=== PATIENT | male | born 1960 | race Caucasian/White ===

== ENCOUNTER 2017-03-27 11:39 | Inpatient (IN) | payer BC ==
[~2017-03-27] VITALS: Ht 177.8 cm; Wt 115.7 kg
[~2017-03-27 11:39] MED LIST: ALLOPURINOL300 MG PO; BENICAR HCT 401 EAC1 PO; CILOXAN5 ML OD; CILOXAN5 ML OS; FENOFIBRATE160 MG PO; FUROSEMIDE40 MG PO; LEVOTHYROXINE50 MCG PO; LIALDA1.2 GM PO; OXYCODONE HCL5 MG PO; POTASSIUM CHLO20 ME1 PO; ZOLPIDEM TART12.5 MG PO
--- NOTE | 2017-03-27 16:04 | NUR ---
PT TO FLOOR WITH RATE EXAMINER. PT ABLE TO TRANSFER TO BED HIMSELF. RATES PAIN 310. VS TAKEN, BP HIGH.
[2017-03-27] MEDS ORDERED: METOPROLOL SUCC25 MG PO (17:01)
--- NOTE | 2017-03-27 17:18 | NUR ---
PT TO FLOOR AT 1600. NPO. RATES PAIN 3\10. INDEPENDENT IN ROOM. GIVEN ZOFRAN, PHEN, AND DILAUDID IN ED.
--- NOTE | 2017-03-27 18:13 | NUR ---
PT SLEEPING, APPEARS COMFORTABLE.
--- NOTE | 2017-03-27 20:15 | NUR ---
PT APPEARS TO BE SLEEPING. LAYING IN BED, EYES CLOSED, RR WNL AND UNLABORED. TV AND LIGHTS OUT IN ROOM. IV WNL AND INFUSING WELL.
--- NOTE | 2017-03-27 20:38 | NUR ---
PT WOKE EASILY TO VOICE. DENIES PAIN AND NAUSEA AT THIS TIME. IV INFUSING WNL. PT ALERT AND ORIENTED X4, PLEASENT AND FRIENDLY DEMEANOR. NO NEEDS AT THIS TIME. CALL LIGHT IN REACH.
--- NOTE | 2017-03-28 00:48 | NUR ---
pt continues to complain of 7/10 pain, gave dilaudid for pain. pt in bed, laying down. no apparent distress, alert and oriented, pleasent demeanor. call light in reach.
--- NOTE | 2017-03-28 04:25 | NUR ---
PT APPEARS TO BE SLEEPING AT THIS TIME. LIGHTS AND TV OFF IN ROOM.
--- NOTE | 2017-03-28 06:01 | NUR ---
PT HAD UNEVENTFUL NIGHT. SLEPT MAJORITY OF SHIFT. DILAUDID GIVEN FOR PAIN X1 OVERNIGHT. NO NAUSEA. NPO. IV FLUIDS. STANDBY ASSIST. ALERT AND ORIENTED X4, PLEASENT DEMEANOR. USES CALL LIGHT APPROPRIATLY.
--- NOTE | 2017-03-28 06:28 | NUR ---
PT RATES PAIN AT 7/10, GAVE DILAUDID IV FOR PAIN.
--- NOTE | 2017-03-28 07:26 | NUR ---
RECIEVED BEDSIDE REPORT FROM LARS BASS. PT SLEEPING IN BED, BREATHING EVEN AND UNLABORED.
--- NOTE | 2017-03-28 08:52 | NUR ---
HUNG NEW BAG OF FLUID. SL PT FOR SHOWER. MANUFACTURING SPECIALIST ASSISTING.
--- NOTE | 2017-03-28 09:13 | NUR ---
PT RESTING IN BED WITH EYES CLOSED. PT REPORTS NO PAIN, NO NAUSEA. IV RUNNING. SITE DRESSING C/D/I.
--- NOTE | 2017-03-28 10:18 | NUR ---
PT STATED PAIN WAS "CREEPING UP AGAIN" RATED 4/10. ONE PRN OXY GIVEN.
--- NOTE | 2017-03-28 10:33 | NUR ---
SPOKE WITH DR. DENNISON REGARDING PT BP INCREASING. PT WAS GIVEN PRN PAIN MEDS. DR. DENNISON WILL VISIT PT.
--- NOTE | 2017-03-28 11:12 | NUR ---
DR ORDERED ANOTHER BP MED FOR CONTINUING ELEVATED BP. ADMINSTERED WITH SIP OF WATER. PT TOLERATED WELL AND STATED THE OXY HAD KICKED IN AND WAS FEELING DECENT.
--- NOTE | 2017-03-28 13:06 | NUR ---
PT C/O PAIN. IV DILAUDID GIVEN. PT RATES PAIN AT 6, PT STATES "THE PAIN CREAPS UP, ITS NOT TOO BAD WHEN I LAY HERE."
--- NOTE | 2017-03-28 14:06 | NUR ---
ORDERED NEW MED, SPIRONOLACTONE. MED GIVEN, VITAL SIGNS TAKEN.
--- NOTE | 2017-03-28 16:07 | NUR ---
PT STATED HE WOULD LIKE PO PAIN PILL, EVEN THOUGH IT TAKES LONGER FOR EFFECT. HE SATED "MY PAIN IS NOT BAD NOW"
--- NOTE | 2017-03-28 16:37 | NUR ---
CALLED PHARMACY TO RETIME THYROID MEDICATION. SCHEDULED FOR 0900, ASKED TO RETIME FOR 0700.
--- NOTE | 2017-03-28 17:08 | NUR ---
PT ADVANCED DIET TO CLEAR LIQUIDS. PT INDEPENDEDNT IN ROOM. PT HAD PRN IV PAIN MEDS X1, PRN PO MEDS X2. PT TOLERATING CLEAR LIQUIDS WELL. PT SPENT DAY RESTING.
--- NOTE | 2017-03-28 21:38 | NUR ---
VITALS TAKEN, TEMPERATURE ELEVATED, INSTRUCTED PT IN USING THE INCENTIVE SPIROMETER. PT DENIES ANY SX OF FEVER. PT AMBULATED IN ROOM AND USED INCENTIVE SPRIOMETER. TEMPERATURE REMAINED ELEVATED, DR NOTIFIED AND TYLENOL GIVEN. PT ALERT AND ORIENTED X4, PLEASENT DEMEANOR. DILAUDID GIVEN FOR PAIN.
--- NOTE | 2017-03-29 02:28 | NUR ---
PT REPORTS 5/10 PAIN, GAVE PO OXYCODONE PER PT REQUEST. PT REPORTS USING INCENTIVE SPIROMETER. PT IS NOW AFEBRILE. NO FURTHER NEEDS. CALL LIGHT IN REACH.
--- NOTE | 2017-03-29 04:23 | NUR ---
PT APPEARS TO BE SLEEPING. RR WNL AND UNLABORED.
--- NOTE | 2017-03-29 06:25 | NUR ---
PT HAD UNEVENTFUL NIGHT. SLEPT MAJORITY OF SHIFT. PAIN WELL CONTROLLED WITH PRN PAIN MEDS. PT ALERT AND ORIENTED X4, PLEASENT DEMEANOR. USES CALL LIGHT APPROPRIATLY.
--- NOTE | 2017-03-29 08:03 | NUR ---
PT UP IN CHAIR WITH CLEAR LIQUID BREAKFAST TRAY. DENIES PAIN AT THIS TIME, C/O FULLNESS AND BLOATING IN ABD.
--- NOTE | 2017-03-29 09:55 | NUR ---
PT SITTING IN CHAIR. REQUESTED PAIN MEDS, PAIN 5/10. IV DILAUDID GIVEN.
--- NOTE | 2017-03-29 11:47 | NUR ---
PT RESTING COMFORTABLY IN BED WITH EYES CLOSED. PT REPORTS DILAUDID WAS EFFECTIVE, PAIN DECREASED 2/10.
--- NOTE | 2017-03-29 12:38 | NUR ---
PATIENT RESTING IN BED REPORTED THAT HIS PAIN IS BETTER AFTER THE DILAUDID. DENIES NAUSEA. NO APPARENT DISTRESS NOTED.
--- NOTE | 2017-03-29 14:01 | NUR ---
PT RESTING IN BED. PT STATED HE HAD NO PAIN, HE WAS WAITING FOR THE DR. HE DECLINED PAIN MEDICATION AT THIS TIME.
--- NOTE | 2017-03-29 14:42 | NUR ---
DR DENNISON WAS NOTIFIED ABOUT PATIENT TEMP 0F 100.9. TYLENOL GIVEN. PATIENT RESTING IN BED.
--- NOTE | 2017-03-29 15:33 | NUR ---
PT SITTING IN CHAIR WITH COOL CLOTHES ON FOREHEAD. PT STATES THAT "HE DOESN'T FEEL FEVERISH OR SICK." PT FEVER REDUCED TO 99.4. OFFERED MORE WATER, PT STATES HE IS FINE.
--- NOTE | 2017-03-29 18:00 | NUR ---
PATIENT SITTING AT BEDSIDE, JUST FINISHED EATING DINNER. TOLERATED IT WELL. DENIES NAUSEA. REPORTED MILD PAIN. IV FLUID INFUSING WELL. NO APPARENT DISTRESS.
--- NOTE | 2017-03-29 18:48 | NUR ---
PT ADVANCED TO LOW FAT DIET. PAIN CONTROLED BY PRN IV AND PO PAIN MEDS. PT ANXIOUS TO D/C HOME TOMORROW. INDEPENDENT IN ROOM. PT VOIDING WELL, PASSING GAS, SMALL BM. LR WITH 20MEQ OF POTTASIUM RUNNING AT 125ML/HR. PT UP TO CHAIR THIS SHIFT.
--- NOTE | 2017-03-29 19:15 | NUR ---
BEDSIDE SHIFT REPORT RECEIVED FROM LARS BARCENAS. PT IS RESTING IN BED, ALERT/ORIENTED, REQUESTS PAIN MEDICATION WHEN IT IS AVAILABLE, STATES HIS PAIN IN ABDOMEN IS STARTING TO INCREASE. RA. IV PATENT, LR +20MEQ K+ @ 125ML/HR. DENIES FURTHER REQUESTS, WILL CONTINUE TO MONITOR.
--- NOTE | 2017-03-29 20:00 | NUR ---
ASSESSMENT COMPLETED. PT IS ALERT/ORIENTED, REPORTS 6/10 ABDOMINAL PAIN, 1MG IV DILAUDID GIVEN. LUNGS CLEAR, RA. HR REGULAR. BOWEL TONES ACTIVE, DENIES NAUSEA, PT REPORTS MILD DISTENTION, ABDOMEN FEELS SOFT, DENIES TENDERNESS. SKIN INTACT, CMS INTACT, NO EDEMA NOTED. IV PATENT, INFUSING WNL. DENIES FURTHER REQUESTS AT THIS TIME. WILL CONTINUE TO MONITOR.
--- NOTE | 2017-03-29 21:00 | NUR ---
PT STATES PAIN HAS IMPROVED AND ONLY RATES IT 1-2. DENIES FURTHER REQUESTS AT THIS TIME.
--- NOTE | 2017-03-30 00:25 | NUR ---
PT SLEEPING, NO APPARENT DISTRESS. RESPIRATIONS EVEN AND UNLABORED. WILL CONTINUE TO MONITOR.
--- NOTE | 2017-03-30 00:56 | NUR ---
PT REQUESTED PAIN MEDICATION FOR 4/10 ABDOMINAL AND HEADACHE PAIN. 1 TAB OXYCODONE GIVEN. PT REPORTED FEELING CHILLED, CHECKED TEMP: 99.0. PROVIDED WARM BLANKET AND TURNED UP ROOM TEMP. WILL CONTINUE TO MONITOR. DENIES FURTHER REQUESTS.
--- NOTE | 2017-03-30 02:40 | NUR ---
ASSESSMENT COMPLETED. PT REPORTS MILD ABDOMINAL PAIN RATING 2/10, STATES THAT IT IS TOLERABLE AT THIS TIME. LUNGS CLEAR, RA. HR REGULAR. BOWEL TONES ACTIVE, ABDOMEN SOFT AND NONTENDER, NO NAUSEA. IV PATENT, INFUSING WNL. PT DENIES FURTHER REQUESTS AT THIS TIME, WILL CONTINUE TO MONITOR.
--- NOTE | 2017-03-30 05:51 | NUR ---
PT SLEPT WELL THROUGHOUT SHIFT, PAIN WELL CONTROLLED WITH PRN OXYCODONE AND DILAUDID, EACH GIVEN ONCE. NO NAUSEA. LUNGS CLEAR, RA. HR REGULAR. BOWEL TONES ACTIVE, ABDOMEN SOFT, PT STATES DISTENTION IS IMPROVING. AFEBRILE, VSS. IV PATENT, LR +20MEQ K+ @125ML/HR. PT HOPES TO D/C HOME TODAY.
--- NOTE | 2017-03-30 07:20 | NUR ---
REPORT RECEIVED FROM [employer] SHEARER RN USING 5 P'S. PT UP MOVING AROUND ROOM. DENIES NAUSEA. DENIES PAIN. DENIES NEEDS AT THIS TIME. CALL LIGHT IN REACH. WOULD LIKE TO DC TODAY. AWARE.
--- NOTE | 2017-03-30 09:00 | NUR ---
PT UP IN CHAIR. FINISHED BREAKFAST. DENIES NAUSEA, PAIN. DENIES NEEDS. IV INFUISNG WITHOUT DIFFICULTY. CALL LIGHT IN REACH.
[2017-03-30] MEDS ORDERED: SPIRONOLACTONE25 MG PO (10:06)
--- NOTE | 2017-03-30 11:22 | NUR ---
PT GIVEN DC INSTRUCTIONS BY RN AND PHARMACY. DENIES ADDITIONAL QUESTIONS. VITALS DONE FOR DC.
--- NOTE | 2017-03-30 11:47 | NUR ---
PT SITTING IN CHAIR WITH HAT ON AND SON BY HIS SIDE WAITING TO BE DC'D. HE SHOOK MY HAND AND WE HAD A PLEASANT CONVERSATION. HE WAS ALERT, AND ORIENTED. HE THANKED ME FOR COMING IN AND SAID HE IS LOOKING FORWARD TO BEING IN HIS OWN BED. GAVE A BLESSING AND HE THANKED ME
--- NOTE | 2017-04-22 10:37 | CONS ---
[facility] [address] [place], [place] [address] Signed DATE OF CONSULTATION: 03/30/17 REQUESTING PHYSICIAN: Dr. An. PROBLEM: Recurrent pancreatitis; alcoholism, in remission. HISTORY This 56-year-old obese white man is known to me from the past, having been treated for ulcerative proctitis. He generally takes Lialda on a daily basis and has been well controlled with it. Initially, Cortenemas were used. The patient was admitted on March 27, 2017, with recurrent pancreatitis and findings of elevated lipase level, greater than 2500. He has been hospitalized in the past for pancreatitis with similar symptoms and elevated pancrea tic enzymes, but in those times, he was drinking alcohol in excess, and it was considered likely alcoholic pancreatitis. The patient has been abstinent of alcohol use for at least 2 months, and his new episode is reconsidered now to approximately be related to biliary source of etiology. Imaging studies of the gallbladder in the past have not shown gallstones. Consideration is now made again for consideration of gallbladder as a source of pancreatitis and for consideration of cholecystectomy on that basis. SOCIAL HISTORY He lives in [place]. He is a patient of Dr. Evan painter. 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 REVIEW OF SYSTEMS Denies any shortness of breath or chest pain. He is not having severe abdominal pain at this time, 48 hours post hospitalization. He had no nausea or vomiting today and is tolerating a clear liquid diet. PHYSICAL EXAMINATION GENERAL: Obese white main who does not look systematically toxic. HEENT: Trachea is midline. He has no hoarseness. CHEST: Clear. HEART: Regular. ABDOMEN: Quite obese but soft. I detect no tenderness at this time. The umbilical area shows proximal mild umbilical herniation. I do not detect ascites. NEUROLOGIC: Pupils equal, round, and reactive to light. Extraocular eye movements normal. No signs of nystagmus. He has no tremor or tremulousness. His gait appears reasonably normal to limited ambulation. 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 Electronically Signed By: KATHRYN CADENA MD 04/22/17 [facility] PATIENT NAME: DONTE CABRERA CONSULTATION DATE OF : 58 PHYSICIAN: KATHRYN CADENA MD REPORT #: [id number] REPORT IS CONFIDENTIAL AND NOT TO BE RELEASED WITHOUT AUTHORIZATION [facility] [address] [place], [place] [address] Signed LABORATORY STUDIES White count today 12.6, adrian tocrit 42.9, platelets 116,000. Chem profile is normal. Bilirubin 1.3, AST 12, ALT 10, alk phos 24, lipase on March 27 was 2656. Today's lab is unavailable due to issues with lab transport. ASSESSMENT He is clinically free of acute pancreatitis, and I do not detect ascites at this time. Imaging studies at the time of admission on March 27, 2017, showed reactive peripancreatic lymph nodes, no evidence of pancreatic pseudocyst or pancreatic ductal dilatation. There is extensive peripancreatic fat stranding. No evidence of pancreatic necrosis. The gallbladder is considered normal. He may have gallbladder-related pancreatitis despite no gallstones known on imaging studies. Particularly, since he has been abstinent of alcohol for reasonably long time and his di agnosis was rightly considered alcohol-related pancreatitis, things may be reconsidered as a possibility of a biliary-related pancreatitis. I discussed this with him in detail. I did consider for him the idea of laparoscopic cholecystectomy performed jose erika ross. The patient is adamant that he be discharged today or tomorrow. I discussed with him the need to avoid alcohol under any circumstance which he is already doing and Dr. An has reviewed his maintenance medications which might be modified to eliminat e those with any chance of causing pancreatitis themselves. I am happy to see him again should he change his mind about the idea of cholecystectomy. I cannot guarantee that it would be cured off to recurrent pancreatitis, and it is unknown if this current e pisode is related to biliary disease after all. On the other hand, I believe he will tolerate cholecystectomy well enough. Gallbladder is the source of his pancreatitis. It may be helpful in eliminating feature about the pancreatitis. He understands all o f this. MD YULI Olson/Farshad /[id number] cc: Dr. Juve Gordon Electronically Signed By: KATHRYN CADENA MD 04/22/17 1037 PATIENT NAME: DONTE CABRERA CONSULTATION DATE OF : 58 PHYSICIAN: KATHRYN CADENA MD REPORT #: [id number] REPORT IS CONFIDENTIAL AND NOT TO BE RELEASED WITHOUT AUTHORIZATION
== END 2017-03-30 11:20 | disposition home or self-care (01) | DRG 439 ==
LOC: ED 11:39 → MS 15:24
PROVIDERS: ADMIT Internal Medicine
DX: K85.90 Acute pancreatitis without necrosis or infection, unspecified (principal); K51.90 Ulcerative colitis, unspecified, without complications; E78.5 Hyperlipidemia, unspecified; E03.9 Hypothyroidism, unspecified; E79.0 Hyperuricemia without signs of inflammatory arthritis and tophaceous disease; I11.0 Hypertensive heart disease with heart failure; I50.9 Heart failure, unspecified; G47.33 Obstructive sleep apnea (adult) (pediatric)
CPT/HCPCS: 36415; 74177; 80053; 81001; 83690; 83735; 84100; 85025; 96361; 96374; 96375; 99285; J1170; J2405; J2550; J3480; J7030; J7120; Q9967

== ENCOUNTER 2020-05-27 13:22 | Day surgery (SDC) | payer BC ==
[~2020-05-27] VITALS: Ht 177.8 cm; Wt 114.8 kg
[~2020-05-27 13:22] MED LIST changes: +CITALOPRAM HBR20 MG PO; +CYCLOBENZAPRINE10 MG PO; +FOLIC ACID1 MG PO; +K-TAB ER20 MEQ PO; +LASIX40 MG PO; +LUNESTA3 MG PO; +MESALAMINE1.2 GM PO; +METOPROLOL SUCC25 MG PO; +NORCO 7.5-3251 EACH PO; +OMEPRAZOLE20 MG PO; +PREDNISONE20 MG PO; +SPIRONOLACTONE25 MG PO; +TIROSINT50 MCG PO; +VENTOLIN HFA18 GM INH
[2020-05-27] MEDS ORDERED: BENICAR HCT 401 EAC1 PO (13:45)
--- NOTE | 2020-05-27 16:30 | NUR ---
05/27/20 1630 Ashanti Esposito 1624- PT ARRIVES TO PACU AWAKE AND ORIENTED. PT REPORTS NO PAIN OR NAUSEA. RESP EVEN AND UNLABORED. OXYGEN SAT HIGH 90'S TO 100% ON 2L VIA NC. 1629- OXYGEN TITRATED OFF.
--- NOTE | 2020-05-31 08:25 | OR ---
[facility] [address] [place], [place] [address] Signed DATE OF OPERATION: 05/27/2020 SURGEON: Kathryn Cadena MD PREOPERATIVE DIAGNOSIS: Persistent flare of ulcerative colitis, well established. POSTOPERATIVE DIAGNOSIS: Persistent ulcerative colitis, sigmoid and rectum. PROCEDURE: Total colonoscopy to cecum with intubation of ileum and multiple biopsies. ANESTHESIA: Intravenous sedation, fentanyl 100 mcg, and Versed 7 mg. INDICATION: A 59-year-old white man, patient Dr. Munsonradha Alarconbo, with known ulcerative colitis. He was initially controlled with steroids, tapering down to Lialda as a treatment method. For the past several months, he has had increasing symptoms including diarrhea, bleeding, and urgency. Retreatment with steroid has a rescue approach as well as continued use of Lialda has been a less than satisfactory and incomplete in its response. It has been over 2 years since his last colonoscopy. He is to undergo colonoscopy at this time to assess the extent of his colitis, ascertained there was no evidence of other source of bleeding (malignancy) and better outline of treatment plan. He understands the risks of bleeding, infection, and perforation, and wished to proceed. FINDINGS: Typical ulcerative colitis was noted extending from the sigmoid through the rectum. The more proximal colon was normal as was the ileum. PROCEDURE IN DETAIL: The patient was brought to the endoscopy suite, placed in lateral decubitus position, and given intravenous sedation to the point of slurred speech and nystagmus. Digital rectal examination was normal. An Olympus video colonoscope was passed in the rectum and manipulated throughout the colon noting inflammatory changes of sigmoid, rectosigmoid, and sigmoid. The scope was passed into the proximal left colon where a transition of normal mucosa was noted. The scope was easily advanced ultimately to the cecum and intubation of the ileum Electronically Signed By: KATHRYN CADENA MD 05/31/20 0825 PATIENT NAME: DONTE CABRERA OPERATIVE REPORT DATE OF : 58 REPORT #: [id number] PHYSICIAN: KATHRYN CADENA MD PCP: CARMEN GORDON MD REPORT IS CONFIDENTIAL AND NOT TO BE RELEASED WITHOUT AUTHORIZATION [facility] [address] [place], [place] [address] Signed accomplished as well. Biopsies were taken of the ileum appeared normal. Scope was withdrawn and biopsies were then taken of the cecum. Withdrawal of scope allowed for biopsies additionally at the splenic flexure area and further withdrawal of scope showed inflammatory changes beginning at about 60 cm from the anal verge. Biopsies were taken there. Additional biopsies were taken in the sigmoid and the rectum. Retroflexed view was undertaken as well. The clinical appearance is completely consistent with acute history of ulcerative colitis and flare. PLAN: He likely will need a biologic agent after all. In the meantime, we will initiate prednisone 40 mg p.o. daily and increase Lialda 2.4 g p.o. daily. We will make plans for possible biologic agent initiation to include obtaining TB test, etc. We will see him back in the office in 2 to 3 weeks. In the meantime, we will make arrangements for other tests as described. MD YULI Olson/BRAYDENL /[id number] cc: Carmen Gordon MD Copies: CARMEN GORDON MD ~ Electronically Signed By: KATHRYN CADENA MD 05/31/20 0825 PATIENT NAME: DONTE CABRERA OPERATIVE REPORT DATE OF : 58 REPORT #: [id number] PHYSICIAN: KATHRYN CADENA MD PCP: CARMEN GORDON MD REPORT IS CONFIDENTIAL AND NOT TO BE RELEASED WITHOUT AUTHORIZATION
--- NOTE | 2020-05-31 17:13 | PATH ---
[facility] [address] [place], [place] [address] Signed SPECIMEN(S): A CECUM SPECIMEN(S): B TERMINAL ILEUM SPECIMEN(S): C SPLENIC FLEXURE SPECIMEN(S): D COLON AT 60 CM SPECIMEN(S): E COLON POLYP AT 45 CM SPECIMEN(S): F SIGMOID SPECIMEN(S): G RECTUM SPECIMEN SOURCE: A. CECUM B. TERMINAL ILEUM C. SPLENIC FLEXURE D. COLON AT 60 CM E. COLON POLYP AT 45 CM F. SIGMOID G. RECTUM CLINICAL HISTORY: Colonoscopy. Chronic ulcerative colitis. Mod. rectosigmoid ulcerative colitis. MICROSCOPIC DESCRIPTION: Histologic sections of all submitted blocks are examined by light microscopy. These findings, together with the gross examination, support the pathologic diagnosis. FINAL PATHOLOGIC DIAGNOSIS: A. Cecum, biopsy: - Quiescent colonic mucosa, negative for dysplasia. B. Terminal ileum, biopsy: - Quiescent small bowel type mucosa, negative for dysplasia. C. Splenic flexure, biopsy: - Quiescent colonic mucosa, negative for dysplasia. D. Colon at 60 cm, biopsy: - Quiescent colonic mucosa, negative for dysplasia. E. Colon polyp at 45 cm, biopsy: - Inflammatory polyp with mild chronic active colitis. - Negative unequivocal dysplasia. F. Sigmoid colon biopsy: - Moderate chronic active colitis, negative for dysplasia. G. Rectum, biopsy: - Moderate chronic active colitis, negative for dysplasia. PATIENT NAME: DONTE CABRERAUGHN PATHOLOGY DATE OF : 58 REPORT #: [id number] PHYSICIAN: MARIA LUISA PATHOLOGY PCP: CARMEN MALONEY MD REPORT IS CONFIDENTIAL AND NOT TO BE RELEASED WITHOUT AUTHORIZATION [facility] [address] [place], [place] [address] Signed JVR:[id number] GROSS DESCRIPTION: Seven specimens are received in seven containers, labeled "WS." A. The specimen, labeled "WS, 1," and designated on the requisition "cecum," is received in formalin and consists of two lea soft tissue fragments that measure 0.3 cm in greatest dimension. The specimen is entirely submitted in cassette (A1). B. The specimen, labeled "WS, 2," and designated on the requisition "terminal ileum," is received in formalin and consists of two lea soft tissue fragments that measure 0.4 cm in greatest dimension. The specimen is entirely submitted in cassette (B1). C. The specimen, labeled "WS, 3," and designated on the requisition "splenic flexure," is received in formalin and consists of one lea soft tissue fragment that measures 0.3 cm in greatest dimension. The specimen is entirely submitted in cassette (C1). D. The specimen, labeled "WS, 4," and designated on the requisition "colon at 60 cm," is received in formalin and consists of two lea soft tissue fragments that measure 0.3 cm in greatest dimension. The specimen is entirely submitted in cassette (D1). E. The specimen, labeled "WS, 5," and designated on the requisition "colon polyp at 45 cm," is received in formalin and consists of two lea soft tissue fragments that measure 0.3 cm in greatest dimension. The specimen is entirely submitted in cassette (E1). F. The specimen, labeled "WS, 6," and designated on the requisition "sigmoid," is received in formalin and consists of four lea soft tissue fragments that measure 0.3 cm in greatest dimension. The specimen is entirely submitted in cassette (F1). Note: Smallest fragments are minute and may not survive processing. G. The specimen, labeled "WS, 7," and designated on the requisition "rectum," is received in formalin and consists of multiple lea soft tissue fragments that measure 0.8 x 0.7 x 0.3 cm in aggregate. The specimen is entirely submitted in cassette (G1). AT (under the direct supervision of a pathologist) The Gross Description was prepared using a voice recognition system. The report was reviewed for accuracy; however, sound-alike word errors, addition and/or deletions may occur. If there is any question about this report, please contact Client Services. PERFORMING LABORATORY: PATIENT NAME: DONTE CABRERA PATHOLOGY DATE OF : 58 REPORT #: [id number] PHYSICIAN: MARIA LUISA EDEN PCP: CARMEN MALONEY MD REPORT IS CONFIDENTIAL AND NOT TO BE RELEASED WITHOUT AUTHORIZATION [address] [address] Signed The technical component was performed by [employer], [address] [place] [id number] (Geospatial Extractor Analysis: Zhanna Sheriff MD; CLIA# [id number]). Professional interpretation was performed by [employer], [address], [place] [address] (Geospatial Extractor Analysis: Sebastián Rocha M.D.). Diagnostician: Sebastián Rocha MD Pathologist Electronically Signed 05/31/2020 Copies: ~ PATIENT NAME: DONTE CABRERA PATHOLOGY DATE OF : 58 REPORT #: [id number] PHYSICIAN: MARIA LUISA PATHOLOGY PCP: CARMEN MALONEY MD REPORT IS CONFIDENTIAL AND NOT TO BE RELEASED WITHOUT AUTHORIZATION
== END 2020-05-27 17:05 | disposition home or self-care (01) ==
LOC: OPS 13:22 → DS 14:00 → OPS 14:45 → DS 14:45 → OPS 17:05
PROVIDERS: Surgery
PROC: 0DBE8ZX Excision of Large Intestine, Via Natural or Artificial Opening Endoscopic, Diagnostic (ICD-10-PCS; 2020-05-27)
PROC: 0DBL8ZX Excision of Transverse Colon, Via Natural or Artificial Opening Endoscopic, Diagnostic (ICD-10-PCS; 2020-05-27)
PROC: 0DBN8ZX Excision of Sigmoid Colon, Via Natural or Artificial Opening Endoscopic, Diagnostic (ICD-10-PCS; 2020-05-27)
PROC: 0DBP8ZX Excision of Rectum, Via Natural or Artificial Opening Endoscopic, Diagnostic (ICD-10-PCS; 2020-05-27)
PROC: 0DBB8ZX Excision of Ileum, Via Natural or Artificial Opening Endoscopic, Diagnostic (ICD-10-PCS; 2020-05-27)
PROC: 0DBH8ZX Excision of Cecum, Via Natural or Artificial Opening Endoscopic, Diagnostic (ICD-10-PCS; principal; 2020-05-27 14:45)
DX: K51.90 Ulcerative colitis, unspecified, without complications (principal); K63.5 Polyp of colon; I10 Essential (primary) hypertension; E66.01 Morbid (severe) obesity due to excess calories; Z68.36 Body mass index [BMI] 36.0-36.9, adult; Z88.5 Allergy status to narcotic agent; Z91.013 Allergy to seafood; Z79.899 Other long term (current) drug therapy; Z87.891 Personal history of nicotine dependence
CPT/HCPCS: 99153; G0500; J2250; J3010; J7121